=== PATIENT | male | born 1970 | race Two or more races ===

== ENCOUNTER 2019-03-29 11:31 | Emergency (ER) | payer MEDICAID, OTHER ==
[~2019-03-29] VITALS: Ht 170.2 cm; Wt 54.4 kg
[2019-03-29] MEDS ORDERED: INSULIN REGULAR, HUMAN 100 UNIT/ML 10 ML VIAL ONE ×2 (12:29→13:26)
[2019-03-29] MEDS: INSULIN ASPART/LISPRO 100 UNIT/ML CARTRIDGE SQ STA ×2 (12:38→14:06)
[2019-03-29] MEDS ORDERED: INSULIN REGULAR, HUMAN 100 UNIT/ML 10 ML VIAL SQ ONE ×2 (13:30→14:30)
--- NOTE | 2019-03-29 14:55 | NUR ---
PT STATES FEELING MUCH BETTER S/P MEDICATION. PT IS MEDICALLY CLEARED. D/C TO PD IN STABLE CONDITION.
[2019-03-29 14:57] VITALS: BP 132/68
== END 2019-03-29 14:58 | disposition home or self-care (01) ==
LOC: ER 11:34
DX: E11.9 Type 2 diabetes mellitus without complications (principal); Z79.4 Long term (current) use of insulin
CPT/HCPCS: 82962 ×4; 96372 ×3; 99283; A6402; J1815 ×3; J7030

== ENCOUNTER 2019-03-30 18:28 | Emergency (ER) | payer MEDICAID, OTHER ==
[~2019-03-30] VITALS: Ht 170.2 cm; Wt 72.6 kg
[2019-03-30 19:10] LABS: BASOPHILS % (AUTO) 0.9 % (0.0-2.0); EOSINOPHILS % (AUTO) 2.7 % (0.0-6.0); HEMATOCRIT 44 % (39-51); HEMOGLOBIN 14.8 g/dL (13.5-17.5); LYMPHOCYTES # (AUTO) 1.1 /CMM (0.8-4.8); LYMPHOCYTES % (AUTO) 26.6 % (20.0-44.0); MEAN CORPUSCULAR HGB CONC 34 g/dl (31.0-36.0); MEAN CORPUSCULAR VOLUME 97 fL (80-96); MONOCYTES # (AUTO) 0.4 /CMM (0.1-1.30); MONOCYTES % (AUTO) 8.8 % (2.0-12.0); NEUTROPHILS # (AUTO) 2.5 /CMM (1.8-8.9); PLATELET COUNT (AUTO) 245 /CMM (150-450); WHITE BLOOD COUNT (AUTO) 4.1 K/uL (4.3-11.0)
[2019-03-30 19:30] LABS: ALBUMIN 3.5 g/dL (3.4-5.0); BILIRUBIN,TOTAL 0.5 mg/dL (0.2-1.0); CALCIUM, SERUM 8.9 mg/dL (8.5-10.1); TOTAL PROTEIN, SERUM 7.2 g/dL (6.4-8.2)
[2019-03-30] MEDS ORDERED: IV NS 0.9% 1,000 ML BAG IV ONE ×2 (19:30→20:00)
--- NOTE | 2019-03-30 19:32 | NUR ---
BG 469. AWARE.
[2019-03-30] MEDS ORDERED: INSULIN REGULAR, HUMAN 100 UNIT/ML 10 ML VIAL IV ONE (20:00)
[2019-03-30] MEDS ORDERED: INSULIN REGULAR, HUMAN 100 UNIT/ML 10 ML VIAL ONE (20:59)
[2019-03-30] MEDS ORDERED: INSULIN REGULAR, HUMAN 100 UNIT/ML 10 ML VIAL SQ ONE (23:00)
[2019-03-30 23:32] LABS: APPEARANCE,URINE Clear (CLEAR); BILIRUBIN,URINE Negative (NEGATIVE); BLOOD, URINE Negative Ery/uL (NEGATIVE); COLOR,URINE Yellow (YELLOW); KETONES,URINE Negative (NEGATIVE); LEUKOCYTE ESTERASE ,URINE Negative (NEGATIVE); NITRITE, URINE Negative (NEGATIVE); PROTEIN,URINE Negative (NEGATIVE); UGLUCOSE 500 MG/DL mg/dL (NEGATIVE); UROBILINOGEN,URINE 0.2 EU/dL (0.2)
--- NOTE | 2019-03-31 04:00 | NUR ---
Patient is resting comfortably in bed with eyes closed. Easily aroused.
--- NOTE | 2019-03-31 04:41 | NUR ---
us tech at the bed side
--- NOTE | 2019-03-31 05:40 | NUR ---
IV removed. Catheter intact and site benign. Pressure and 4x4 applied to site. No bleeding noted.Patient discharged to home in stable condition. Written and verbal after care instructions given. Patient verbalizes understanding of instruction. PT WAITING FOR TAP CARD IN WAITING ROOM.
[2019-03-31 05:57] VITALS: BP 102/63
[2019-03-31] MEDS ORDERED: LIDOCAINE HCL/MPF 1% 30 ML VIAL IJ ONE (18:54)
== END 2019-03-31 05:58 | disposition home or self-care (01) ==
LOC: ER 18:30
DX: E11.65 Type 2 diabetes mellitus with hyperglycemia (principal); Y90.9 Presence of alcohol in blood, level not specified; Z59.0 Homelessness
CPT/HCPCS: 36415 ×2; 71045; 76705; 80053; 81001; 82962 ×3; 85025; 96361; 96372; 96374; 99284; G0480; J1815; J3490; J7030; 81000-TC